=== PATIENT | female | born 1995 | race Caucasian/White ===

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

== ENCOUNTER 2018-07-02 15:06 | Emergency (ER) | payer OTHER ==
[2018-07-02 15:28] VITALS: BP 106/61
--- NOTE | 2018-07-02 15:54 | UC ---
Ear Complaint HPI - HPI Summary HPI Summary: Cold symptoms over the past 2 weeks and now with plugged ears and earache bilaterally. She states she has productive cough of greenish sputum. - History of Current Complaint Chief Complaint: UCRespiratory Stated Complaint: CONGESTION/EARS Time Seen by Provider: 07/02/18 15:49 Hx Obtained From: Patient Hx Last Menstrual Period: 05/24/18 ?: No Onset/Duration: Gradual Onset Severity Initially: Mild Severity Currently: Mild Pain Intensity: 0 Aggravating Factors: Nothing Alleviating Factors: Other (Noted In Comments) - Patient has been taking homeopathic medications. Associated Signs/Symptoms: Positive: URI Symptoms - Allergies/Home Medications Allergies/Adverse Reactions: Allergies Allergy/AdvReac Type Severity Reaction Status Date / Time amoxicillin [From Augmentin] Allergy Severe GI Upset Verified 07/02/18 15:24 clavulanic acid Allergy Severe GI Upset Verified 07/02/18 15:24 [From Augmentin] PMH/Surg Hx/FS Hx/Imm Hx Previously Healthy: Yes - Surgical History Surgical History: None - Family History Known Family History: Negative: Diabetes - Social History Alcohol Use: Occasionally Substance Use Type: None Substance Use Comment - Amount & Last Used: Occasionally Smoking Status (MU): Never Smoked Tobacco Household Exposure Type: Cigarettes - Immunization History Most Recent Influenza Vaccination: Not the 2016/2017 season Most Recent Pneumonia Vaccination: never Vaccination Up to Date: Yes Review of Systems All Other Systems Reviewed And Are Negative: Yes Constitutional: Positive: Fever, Chills ENT: Positive: Ear Ache - Bilateral plugged ears., Nasal Discharge Respiratory: Positive: Cough - Productive cough of greenish sputum. Is Patient Immunocompromised?: No Physical Exam Triage Information Reviewed: Yes Appearance: Well-Appearing, No Pain Distress, Well-Nourished Vital Signs: Initial Vital Signs Temp 97.6 F 07/02/18 15:24 Pulse 74 07/02/18 15:24 Resp 16 07/02/18 15:24 BP 106/61 07/02/18 15:24 Pulse Ox 100 07/02/18 15:24 Vital Signs Reviewed: Yes Eye Exam: Normal ENT: Positive: Pharynx normal, Nasal congestion, TM red - Left tympanic membrane with erythema and moderate landmarks, right tympanic membranes pearly lipscomb with good [place] and light reflex., Uvula midline. Negative: Tonsillar swelling, Tonsillar exudate, Trismus, Muffled voice, Hoarse voice Neck exam: Normal Neck: Positive: Supple, Nontender, No Lymphadenopathy Respiratory: Positive: No respiratory distress, No accessory muscle use, Rhonchi - No specific area of consolidation however breath sounds are somewhat rough sounding. Cardiovascular: Positive: RRR, No Murmur, Pulses Normal, Brisk Capillary Refill Abdominal Exam: Normal Abdomen Description: Positive: Nontender, No Organomegaly, Soft Bowel Sounds: Positive: Present Musculoskeletal Exam: Normal Neurological Exam: Normal Psychological Exam: Normal Skin Exam: Normal Ear Complaint Course/Dx - Course Course Of Treatment: Patient has been comfortable here I'm going to treat her for the ear infection with a Z-Tracy. - Differential Dx/Diagnosis Provider Diagnosis: Left otitis media Discharge - Sign-Out/Discharge Documenting (check all that apply): Patient Departure All imaging exams completed and their final reports reviewed: No Studies - Discharge Plan Condition: Fair Disposition: HOME Prescriptions: Azithromyxin TRACY (NF) [Z-Tracy (Zithromax) 250 mg tabs #6] 2 tab PO .TODAY, THEN 1 DAILY #6 tab Patient Education Materials: Ear Infection (ED) Referrals: Sujata iWnkler [Primary Care Provider] - Additional Instructions: Increase fluids, Tylenol every 4 hours for pain or Motrin every 8 hours for pain. Definite follow-up with your primary care provider in 4 or 5 days if no improvement. - Billing Disposition and Condition Condition: FAIR Disposition: Home - Attestation Statements Provider Attestation: Patient not seen by me. I was available for consult. I did not disposition this patient
== END 2018-07-02 16:00 | disposition home or self-care (01) ==
LOC: UCCORT 15:06
DX: H66.92 Otitis media, unspecified, left ear (principal); H92.01 Otalgia, right ear; R05 Cough; Z88.0 Allergy status to penicillin
CPT/HCPCS: 99212; G0463